=== PATIENT | male | born 1995 | race Caucasian/White ===

== ENCOUNTER 2020-06-27 05:00 | Emergency (ER) | payer OTHER ==
[~2020-06-27] VITALS: Ht 172.7 cm; Wt 72.6 kg
[2020-06-27 05:34] LABS: HEMATOCRIT 46.1 % (42.0-52.0); HEMOGLOBIN 15.5 gm/dL (14.0-18.0); MCH 32.2 pg (26.0-34.0); MCHC 33.7 g/dL (28.0-37.0); MCV 95.4 fL (80.0-100.0); PLATELET COUNT 284 thou/uL (150-400); RBC 4.83 mil/uL (4.50-6.00); RDW 13.6 % (10.5-14.5); WBC 21.3 thou/uL (4.0-11.0)
[2020-06-27 05:44] LABS: ANION GAP 23 mmol/L (7-16); BUN 9 mg/dL (7-18); CALCIUM 9.2 mg/dL (8.5-10.1); CHLORIDE 99 mmol/L (98-107); CO2 15 mmol/L (21-32); CREATININE 1.7 mg/dL (0.7-1.3); GLUCOSE 288 mg/dL (74-106); POTASSIUM 3.2 mmol/L (3.5-5.1); SODIUM 137 mmol/L (136-145)
[2020-06-27 05:50] LABS: ALBUMIN 4.1 g/dL (3.4-5.0); DIRECT BILIRUBIN 0.2 mg/dL (<0.1-0.2); SALICYLATE 3.9 mg/dL (2.8-20.0); SGOT 95 U/L (15-37); SGPT 145 U/L (30-65); TOTAL BILIRUBIN 0.6 mg/dL (0.2-1.0); TOTAL PROTEIN 7.7 g/dL (6.4-8.2)
[2020-06-27 07:23] LABS: ABSOLUTE NEUTROPHILS 19.8 thou/uL (1.4-8.2); PLATELET ESTIMATE NORMAL
[2020-06-27 08:06] LABS: AMP/METHAMP POSITIVE (Negative); BARBITURATES Negative (Negative); BENZODIAZEPINES Negative (Negative); COCAINE POSITIVE (Negative); METHADONE Negative (Negative); OPIATES Negative (Negative); PCP Negative (Negative)
--- NOTE | 2020-06-27 10:02 | EKG ---
[facility] [address] ELECTROCARDIOGRAM REPORT Name: ALFRED YORK Room #: [facility] [id number] Admission: 06/27/20 Attend Phys: Discharge: Date of : [birth year] Report #: [id number] THIS REPORT FOR: cc: FAM - Family physician unknown FAM - Family physician unknown Mehdi Meyers MD [facility] ~ THIS REPORT FOR: //name// [facility] ED Test Date: 2020-06-27 Test Time: 09:02:48 Pat Name: ALFRED YORK Department: Room: Gender: Printing Supervisor: ERICA REEVES : 1995 Requested By: Ran Vasquez Order Number: [id number] MD: Mehdi Meyers Measurements Intervals [place] Rate: 122 P: 77 HI: 140 QRS: 49 QRSD: 91 T: 33 QT: 323 QTc: 460 Interpretive Statements Sinus tachycardia Baseline wander in lead(s) V2 No previous ECG available for comparison Electronically Signed On 06-27-2020 10:02:20 CDT by Mehdi Meyers [email or web address] <ELECTRONICALLY SIGNED> By: Mehdi Meyers MD, FAC 06/27/20 1002 1 1 Mehdi Meyers MD, FACC /EPI
[2020-06-27 13:36] VITALS: BP 138/87
== END 2020-06-27 13:38 ==
LOC: ER 05:00
PROVIDERS: Emergency Medicine
DX: F19.10 Other psychoactive substance abuse, uncomplicated (principal); R41.82 Altered mental status, unspecified; R44.0 Auditory hallucinations; R00.0 Tachycardia, unspecified; R44.1 Visual hallucinations; Z88.1 Allergy status to other antibiotic agents; Z88.0 Allergy status to penicillin